=== PATIENT | female | born 1960 | race African-American/Black ===

== ENCOUNTER 2018-05-08 07:35 | Emergency (ER) | payer OTHER ==
--- NOTE | 2018-05-08 07:46 | PDOC ---
*Physical Exam - Vital Signs Last Vital Signs Temp Pulse Resp BP Pulse Ox 98.0 F 87 16 147/101 98 05/08/18 07:38 05/08/18 07:38 05/08/18 07:38 05/08/18 07:38 05/08/18 07:38 Medical Decision Making - Medical Decision Making 05/08/18 07:46 Pt seen by Midlevel Provider under my direct supervision Ancillary studies reviewed I agree with plan as outlined by Midlevel Provider 05/09/18 08:12 *DC/Admit/Observation/Transfer Diagnosis at time of Disposition: Mass of leg - Discharge Dispostion Disposition: HOME Condition at time of disposition: Good - Referrals Referrals: Chauncey Cochran MD [Staff Physician] - - Patient Instructions Printed Discharge Instructions: [place] Additional Instructions: Please keep area clean and dry for the next day. please call Dr. Cochran for an appointment to have the mass excised. - Post Discharge Activity
[2018-05-08 07:49] VITALS: TEMP 98; BMI 35.4
--- NOTE | 2018-05-08 08:49 | PDOC ---
History of Present Illness - General Chief Complaint: Abscess Boil Stated Complaint: L LEG CYST Time Seen by Provider: 05/08/18 07:45 History Source: Patient Exam Limitations: No Limitations - History of Present Illness Initial Comments: 05/08/18 08:06 57-year-old female presents the emergency department for evaluation of left upper inner thigh mass for the past 2 years causing her to be self-conscious now when she is wearing shorts and skirts during the summer months. Patient denies pain, drainage, skin discoloration, increased warmth to the area, or previous areas of concern. Patient denies history of diabetes but states is very anxious and paranoid. Timing/Duration: constant Severity: mild Associated Symptoms: reports: denies symptoms Past History - Travel Traveled outside of the country in the last 30 days: No - Past Medical History Allergies/Adverse Reactions: Allergies Allergy/AdvReac Type Severity Reaction Status Date / Time No Known Allergies Allergy Verified 05/08/18 07:38 Home Medications: Ambulatory Orders NK [No Known Home Medication] 05/08/18 COPD: No DVT: No Dementia: No - Immunization History Immunization Up to Date: Yes - Suicide/Smoking/Psychosocial Hx Smoking History: Never smoked Information on smoking cessation initiated: No Hx Alcohol Use: No Drug/Substance Use Hx: No Patient Lives Alone: No Lives with/in: children Review of Systems - Review of Systems Able to Perform ROS?: No Constitutional: No: Symptoms Reported : No: Symptoms Reported Musculoskeletal: No: Symptoms Reported Integumentary: Yes: Lumps Neurological: No: Symptoms reported *Physical Exam - Vital Signs Last Vital Signs Temp Pulse Resp BP Pulse Ox 98.0 F 87 16 147/101 98 05/08/18 07:38 05/08/18 07:38 05/08/18 07:38 05/08/18 07:38 05/08/18 07:38 - Physical Exam General Appearance: Yes: Nourished, Appropriately Dressed. No: Apparent Distress Vascular Pulses: Doralis-Pedis (L): 2+ Extremity: positive: Normal Capillary Refill, Normal Range of Motion, Other. negative: Normal Inspection (Noted 4 x 4 inch raised soft nontender mass to the left upper inner thigh with fluctuance to center. No increased warmth or or redness noted.), Tender Integumentary: positive: Normal Color, Warm, Moist Neurologic: positive: Alert, Motor Strength 5/5 (ambulatory). negative: Normal Mood/Affect (anxious) Procedures - Incision and Drainage I&D Site: Left: Leg Betadine cleansed: No Anesthesia: 1% Lidocaine Volume(ml): 1 Blade Size: 18 guage Attempts: 1 (Cleansed the area with alcohol and normal saline. Needle tip was inserted approximately 1 inch deep. Minimal blood-tinged fluid drained. Wound culture obtained. Dressing applied ) Plain Packing: No Complications: none Dressing: Yes ED Treatment Course - RADIOLOGY Radiology Studies Ordered: Category Date Time Status SOFT TISSUE EXTREMITY US [US] Stat Ultrasound 05/08/18 08:09 Ordered Medical Decision Making - Medical Decision Making 05/08/18 09:10 Patient with left upper inner thigh mass for the past 2 years now requiring excision. Patient states has become self-conscious with the secondary to wearing shorts and skirts recently. Patient states went to an urgent care clinic who referred her here since they did not have the instruments to excise it. Patient ordered for an ultrasound to estimate size and consistency of mass. 05/08/18 09:40 procedure done prior to ultrasound Minimal fluid drained after needle incision. Wound culture was obtained. Patient will be referred to Dr. Cochran surgeon. Patient agrees with plan. 05/08/18 10:11 Large soft tissue masslike density in the region of in chest, left upper thigh measuring 10.5 x 3.4 x 4.1 without vascular flow, which is nonspecific. Correlate clinically for further evaluation. No drainable collection is identified. No organized abscess is identified. *DC/Admit/Observation/Transfer Diagnosis at time of Disposition: Mass of leg Qualifiers: Laterality: left Qualified Code(s): R22.42 - Localized swelling, mass and lump , left lower limb - Discharge Dispostion Disposition: HOME Condition at time of disposition: Good - Referrals Referrals: Chauncey Cochran MD [Staff Physician] - - Patient Instructions Printed Discharge Instructions: [place] Additional Instructions: Please keep area clean and dry for the next day. please call Dr. Cochran for an appointment to have the mass excised. - Post Discharge Activity
[2018-05-08] MEDS ORDERED: LIDOCAINE HCL 1%, 10 MG/ML (20ML VIAL) ONE (09:24)
[2018-05-08 10:19] VITALS: BP 129/89; PULSE 65
== END 2018-05-08 10:00 | disposition home or self-care (01) ==
LOC: JER 07:35
PROC: 0H9JXZZ Drainage of Left Upper Leg Skin, External Approach (ICD-10-PCS; principal; 2018-05-08)
DX: R22.42 Localized swelling, mass and lump, left lower limb (principal)
CPT/HCPCS: 76882; 87070; 87205; 99282-25